=== PATIENT | female | born 1950 | race Caucasian/White ===

== ENCOUNTER 2024-12-01 22:38 | Emergency (ER) | payer OTHER ==
[~2024-12-01] VITALS: Wt 95.7 kg
[2024-12-02] MEDS ORDERED: Acetaminophen/Oxycodone 5 MG/325 MG TABLET PO ONE (01:15)
[2024-12-02] MEDS ORDERED: PERCOCET 5-3251 EACH PO (01:17)
[2024-12-02] MEDS ORDERED: Ondansetron Hydrochloride 4 MG/2 ML VIAL IV ONE (01:40)
[2024-12-02] MEDS ORDERED: Ondansetron Hydrochloride 4 MG TAB SL ONE (01:40)
[2024-12-02] MEDS ORDERED: Ondansetron4 MG PO (01:49)
== END 2024-12-02 01:50 | disposition home or self-care (01) ==
LOC: ED 22:38
DX: S42.212A Unspecified displaced fracture of surgical neck of left humerus, initial encounter for closed fracture (principal); I10 Essential (primary) hypertension; W01.0XXA Fall on same level from slipping, tripping and stumbling without subsequent striking against object, initial encounter; Y93.89 Activity, other specified; Y92.89 Other specified places as the place of occurrence of the external cause; Y99.8 Other external cause status